=== PATIENT | male | born 1990 | race Caucasian/White ===

== ENCOUNTER 2018-11-01 17:40 | Emergency (ER) | payer BC, OTHER ==
[~2018-11-01] VITALS: Ht 177.8 cm; Wt 121.1 kg
[2018-11-01] MEDS ORDERED: IBUPROFEN 800 MG (MOTRIN) TAB PO STA (18:12)
--- NOTE | 2018-11-01 18:12 | ED General ---
General Chief Complaint: General Problems/Pain Stated Complaint: RT KNEE PAIN, BACK PAIN History of Present Illness Date Seen by Provider: Nov 01, 2018 Time Seen by Provider: 17:58 Timing/Duration: Other (3 weeks) Severity: Mild Modifying Factors: improves with Movement Associated Systoms: Cough, Fever/Chills This is a 28-year-old male who complains of about 3 weeks of cough and intermittent fevers. He has had some increase in his chronic back and knee pain during the last 3 weeks as well, today he felt like his right knee was clicking more frequently than usual although this is not an entirely new symptom. He has no chest pain or shortness of breath. He does smoke cigarettes although he has significantly decreased in the last few weeks. No weakness or numbness or tingling. Denies injection drug use. Denies incontinence or retention of urine or stool. Allergies and Home Medications Allergies Coded Allergies: buspirone (Unverified Adverse Reaction, Mild, TINGLING, 11/01/18) Home Medications No Active Prescriptions or Reported Meds Patient Home Medication List Home Medication List Reviewed: Yes Review of Systems Review of Systems Constitutional: see HPI EENTM: no symptoms reported Respiratory: see HPI Cardiovascular: no symptoms reported Gastrointestinal: no symptoms reported Genitourinary: no symptoms reported Musculoskeletal: see HPI Skin: no symptoms reported Psychiatric/Neurological: No Symptoms Reported Hematologic/Lymphatic: No Symptoms Reported Immunological/Allergic: no symptoms reported Past Iiqsafa-Wmhddw-Xjsjas Hx Patient Social History Alcohol Use: Occasionally Uses Recreational Drug Use: No Smoking Status: Current Everyday Smoker Type Used: Cigarettes Recent Foreign Travel: No Contact w/Someone Who Travel: No Recent Hopitalizations: No Physical Abuse: No Sexual Abuse: No Mistreated: No Fear: No Seasonal Allergies Seasonal Allergies: No Past Medical History Surgeries: Yes (BILAT HERNIA SURGERY AGE 1) Respiratory: No Cardiac: No Neurological: No Genitourinary: No Gastrointestinal: No Musculoskeletal: Yes (CHRONIC KNEE PAIN) Chronic Back Pain HEENT: No Cancer: No Psychosocial: Yes ADD/ADHD, Depression Blood Disorders: No Physical Exam Vital Signs Vital Signs - First Documented 11/01/18 17:45 Temp 101.2 Pulse 113 Resp 20 B/P (MAP) 137/85 (102) Pulse Ox 97 O2 Delivery Room Air Capillary Refill : Height, Weight, BMI Height: '" Weight: lbs. oz. kg; BMI Method: General Appearance: No Apparent Distress Eyes: Bilateral Eye PERRL, Bilateral Eye EOMI HEENT: Other (pharynx is mildly erythematous, no edema, no ulcers or exudates) Neck: Non Tender, Supple; No Lymphadenopathy (L), No Lymphadenopathy (R) Respiratory: No Respiratory Distress, Other (there is good air exchange bilaterally, mild inspiratory and expiratory wheeze on the right anteriorly) Cardiovascular: Regular Rate, Rhythm, No Edema, Normal Peripheral Pulses Gastrointestinal: Non Tender, Soft Back: Normal Inspection, No Vertebral Tenderness, Other (there is mild tenderness in the musculature of the left mid back without other palpatory abnormality) Extremity: Other (there is no effusion in either knee, no erythema or warmth. There is a normal range of motion, there is no pain with micro-movement) Neurologic/Psychiatric: Oriented x3, Normal Mood/Affect; No Abnormal Gait Skin: Warm/Dry Progress/Results/Core Measures Suspected Sepsis SIRS Temperature: Pulse: Respiratory Rate: Blood Pressure / Mean: Results/Orders My Orders Orders - ANH MAYES DO Chest Pa/Lat (2 View) (11/01/18 18:10) Ibuprofen Tablet (Motrin Tablet) (11/01/18 18:12) Vital Signs/I&O 11/01/18 17:45 Temp 101.2 Pulse 113 Resp 20 B/P (MAP) 137/85 (102) Pulse Ox 97 O2 Delivery Room Air Capillary Refill : Progress Note : Progress Note This is a 28-year-old male here with 3 weeks of cough and fevers. He does smoke cigarettes and has mild wheezing on the right side, we will obtain a chest x- ray to evaluate for evidence of pneumonia, patient has had pneumonia in the past but he says he was much sicker at that time. He does state that his main reason for coming is to get some documentation that he has actually been ill so that he can show his boss as he has been having to work outdoors while he is feeling sick recently. He refuses any blood testing. He does not need an x-ray of his knee on an emergent basis, clinically there is nothing that suggest septic arthritis, he is mostly complaining of clicking when I did recommend that he may benefit from orthopedic follow-up for possibly obtaining an MRI. Regarding his back pain there is nothing that suggests vertebral osteomyelitis or epidural abscess or transverse myelitis for example, no evidence of cellulitis or abscess on exam. He is clear that his pain complaints are chronic and seems to have been slightly worse in the last 3 weeks but these are not new for him. He is neurovascularly intact. He is nontoxic appearing despite having a fever and mild tachycardia. I think it is reasonable that we administer an antipyretic and we can reevaluate. Diagnostic Imaging Diagonstic Imaging: Xray Comments CLINICAL INDICATION: Patient with fever and cough x3 weeks. EXAM: Chest x-ray, PA and lateral views. COMPARISONS: None. FINDINGS: Lungs/pleura: There appears to be subtle reticulonodular appearance throughout both lungs. This may be related to atelectasis or mild lung infiltrates. There is no lung consolidation seen. There is no pneumothorax. There is no pleural effusion. Mediastinum: Unremarkable. Pulmonary vasculature: Unremarkable. Heart: Unremarkable. Bones/extrathoracic soft tissue: Unremarkable. IMPRESSION: There appears to be subtle reticular nodular appearance throughout both lungs, which may represent atelectasis or mild lung infiltrates. Followup chest x-ray in 2-4 weeks is suggested to evaluate for interval resolution of this finding. Departure Impression Primary Impression: Cough Additional Impressions: Abnormal chest xray Tobacco abuse Disposition: 01 HOME, SELF-CARE Condition: Stable Departure-Patient Inst. Referrals: NO,LOCAL PHYSICIAN (PCP) Primary Care Physician Patient Instructions: Cough in Adults Scripts Benzonatate (TESSALON PERLES) 100 Mg Capsule 200 MG PO BID PRN PRN for COUGH for 7 Days, #30 CAP Prov: ANH MAYES DO 11/01/18 Albuterol Sulfate (VENTOLIN HFA) 1 Puff Puff 2 PUFF INH Q4H PRN for WHEEZING for 30 Days, #1 INHALER 1 PUFF = 90 MCG Prov: ANH MAYES DO 11/01/18 Azithromycin (Azithromycin) 250 Mg Tablet 250 MG PO UD for 5 Days, #6 TAB TAKE 2 TABLETS ON DAY ONE THEN TAKE 1 TABLET DAILY FOR FOUR MORE DAYS Prov: ANH MAYES DO 11/01/18 Work/School Note: Work Release Form Date Seen in the Emergency Department: Nov 01, 2018 Return to Work: Nov 01, 2018 Restrictions: No Restrictions ANH MAYES DO Nov 01, 2018 18:12
--- NOTE | 2018-11-01 18:24 | Diagnostic Imaging Report ---
CLINICAL INDICATION: Patient with fever and cough x3 weeks. EXAM: Chest x-ray, PA and lateral views. COMPARISONS: None. FINDINGS: Lungs/pleura: There appears to be subtle reticulonodular appearance throughout both lungs. This may be related to atelectasis or mild lung infiltrates. There is no lung consolidation seen. There is no pneumothorax. There is no pleural effusion. Mediastinum: Unremarkable. Pulmonary vasculature: Unremarkable. Heart: Unremarkable. Bones/extrathoracic soft tissue: Unremarkable. IMPRESSION: There appears to be subtle reticular nodular appearance throughout both lungs, which may represent atelectasis or mild lung infiltrates. Followup chest x-ray in 2-4 weeks is suggested to evaluate for interval resolution of this finding. Dictated by: Dictated on workstation # [id number]
[2018-11-01] MEDS ORDERED: BENZ100C18 PO (18:50)
[2018-11-01] MEDS ORDERED: RT-ALBUINH INH (18:50)
[2018-11-01] MEDS ORDERED: AZIT250T12 PO (18:50)
[2018-11-01 18:56] VITALS: BP 131/80
== END 2018-11-01 18:56 | disposition home or self-care (01) ==
LOC: ER FS 17:43
DX: R05 Cough (principal); R91.8 Other nonspecific abnormal finding of lung field; F98.8 Other specified behavioral and emotional disorders with onset usually occurring in childhood and adolescence; F90.9 Attention-deficit hyperactivity disorder, unspecified type; F32.9 Major depressive disorder, single episode, unspecified; F17.210 Nicotine dependence, cigarettes, uncomplicated; Z88.8 Allergy status to other drugs, medicaments and biological substances; Z98.890 Other specified postprocedural states
CPT/HCPCS: 71046

== ENCOUNTER 2019-06-27 18:40 | Emergency (ER) | payer SELFPAY ==
[~2019-06-27] VITALS: Ht 177.8 cm; Wt 122.0 kg
[~2019-06-27 18:40] MED LIST: AZIT250T12 PO; BENZ100C18 PO; RT-ALBUINH INH
[2019-06-27] MEDS ORDERED: LORazepam INJ 2 MG/ML (ATIVAN) VIAL IVP ONE (19:00)
[2019-06-27] MEDS ORDERED: NS IV 1000 ML 1,000 ML IV SCH ×2 (19:00→20:00)
[2019-06-27 19:04] LABS: WHITE BLOOD COUNT 14.1 10^3/uL (4.3-11.0)
[2019-06-27 19:05] LABS: BASOPHILS # (AUTO) 0.1 10^3/uL (0.0-0.1); BASOPHILS % (AUTO) 1 % (0-10); EOSINOPHILS # (AUTO) 0.4 10^3/uL (0.0-0.3); EOSINOPHILS % (AUTO) 3 % (0-10); HEMATOCRIT 43 % (40-54); HEMOGLOBIN 15.2 G/DL (13.3-17.7); LYMPHOCYTES # (AUTO) 4.7 X 10^3 (1.0-4.0); LYMPHOCYTES % (AUTO) 33 % (12-44); MEAN CORPUSCULAR HEMOGLOBIN 31 PG (25-34); MEAN CORPUSCULAR HGB CONC 35 G/DL (32-36); MEAN CORPUSCULAR VOLUME 88 FL (80-99); MEAN PLATELET VOLUME 9.9 FL (7.4-10.4); MONOCYTES # (AUTO) 1.4 X 10^3 (0.0-1.0); MONOCYTES % (AUTO) 10 % (0-12); NEUTROPHILS # (AUTO) 7.5 X 10^3 (1.8-7.8); NEUTROPHILS % (AUTO) 53 % (42-75); PLATELET COUNT 353 10^3/uL (130-400); RED CELL DISTRIBUTION WIDTH 13.2 % (10.0-14.5)
--- NOTE | 2019-06-27 19:07 | ED Chest Pain ---
General Chief Complaint: Chest Pain Stated Complaint: CHEST PAIN, SOB, SHAKY Nursing Triage Note: Patient c/o of chest pain. States he was standing at the stove cooking dinner when he felt a pop on the left side of his chest. He states he started feeling shaky and his vision became blurred. Nursing Sepsis Screen: No Definite Risk Source: patient Exam Limitations: no limitations History of Present Illness Date Seen by Provider: Jun 27, 2019 Time Seen by Provider: 20:20 Initial Comments The patient is a very pleasant 28-year-old male presents for evaluation of sudden onset of left-sided chest pain while cooking dinner this evening. He states he felt a sudden jolt or pop in his chest and then felt very anxious and "shaky". He states that he normally does not drink soda but he drank a 32 ounce caffeinated beverage in the early afternoon today. He reports a history of anxiety but denies any history of palpitations or heart arrhythmias. He is alert and oriented 4, appears anxious, but is in no distress at this time. He denies any shortness of breath, pain with deep breathing, nausea or vomiting, back pain, abdominal pain, fevers or chills, or syncope. His heart rate upon arrival is fluctuating between 115 and 125. He denies any illicit drug use or any stimulants. Timing/Duration: 1 hour Severity/Quality: moderate Location: substernal Radiation: no radiation Activities at Onset: none Prior CP/Workup: no prior chest pain ASA po BLEACHER LARD: No NTG SL BLEACHER LARD: No Allergies and Home Medications Allergies Coded Allergies: buspirone (Unverified Adverse Reaction, Mild, TINGLING, 11/01/18) Home Medications Albuterol Sulfate 1 Puff Puff, 2 PUFF INH Q4H PRN for WHEEZING 1 PUFF = 90 MCG Prescribed by: ANH MAYES on 11/01/181849 Azithromycin 250 Mg Tablet, 250 MG PO UD TAKE 2 TABLETS ON DAY ONE THEN TAKE 1 TABLET DAILY FOR FOUR MORE DAYS Prescribed by: ANH MAYES on 11/01/181849 Benzonatate 100 Mg Capsule, 200 MG PO BID PRN PRN for COUGH Prescribed by: ANH MAYES on 11/01/181849 Patient Home Medication List Home Medication List Reviewed: Yes Review of Systems Review of Systems Constitutional: no symptoms reported EENTM: No Symptoms Reported Respiratory: No Symptoms Reported Cardiovascular: Chest Pain Gastrointestinal: No Symptoms Reported Genitourinary: No Symptoms Reported Musculoskeletal: no symptoms reported Skin: no symptoms reported Psychiatric/Neurological: No Symptoms Reported Endocrine: No Symptoms Reported Hematologic/Lymphatic: No Symptoms Reported All Other Systems Reviewed Negative Unless Noted: Yes Past Iiyofgn-Eyhohs-Amsvrl Hx Past Med/Social Hx: Reviewed Nursing Past Med/Soc Hx Patient Social History Type Used: Cigarettes Recent Foreign Travel: No Contact w/Someone Who Travel: No Recent Infectious Disease Expo: No Recent Hopitalizations: No Seasonal Allergies Seasonal Allergies: No Past Medical History Surgeries: Yes (BILAT HERNIA SURGERY AGE 1) Respiratory: No Cardiac: No Neurological: No Genitourinary: No Gastrointestinal: No Musculoskeletal: Yes (CHRONIC KNEE PAIN) Chronic Back Pain HEENT: No Cancer: No Psychosocial: Yes ADD/ADHD, Depression Blood Disorders: No Physical Exam Vital Signs Vital Signs - First Documented 06/27/19 18:40 Temp 37.4 Pulse 128 Resp 20 B/P (MAP) 164/106 (125) Pulse Ox 100 O2 Delivery Room Air Capillary Refill : Less Than 3 Seconds Height, Weight, BMI Height: 5'10.00" Weight: 267lbs. oz. 121.552162zb; 38.00 BMI Method:Stated General Appearance: No Apparent Distress, WD/WN HEENT: PERRL/EOMI, Pharynx Normal Neck: Full Range of Motion, Normal Inspection, Non Tender Respiratory: Chest Non Tender, Lungs Clear, Normal Breath Sounds, No Accessory Muscle Use Cardiovascular: No Edema, No Gallop, No JVD, Normal Peripheral Pulses, Tachycardia Gastrointestinal: Normal Bowel Sounds, Non Tender, Soft Neurologic/Psychiatric: Alert, Oriented x3, No Motor/Sensory Deficits, neurology tech II- XII Norm as Tested, Other (appears anxious) Skin: Normal Color, Warm/Dry Progress/Results/Core Measures Results/Orders Lab Results Laboratory Tests Test 06/27/19 18:50 Range/Units White Blood Count 14.1 H 4.3-11.0 10^3/uL Red Blood Count 4.91 4.35-5.85 10^6/uL Hemoglobin 15.2 13.3-17.7 G/DL Hematocrit 43 40-54 % Mean Corpuscular Volume 88 80-99 FL Mean Corpuscular Hemoglobin 31 25-34 PG Mean Corpuscular Hemoglobin Concent 35 32-36 G/DL Red Cell Distribution Width 13.2 10.0-14.5 % Platelet Count 353 130-400 10^3/uL Mean Platelet Volume 9.9 7.4-10.4 FL Neutrophils (%) (Auto) 53 42-75 % Lymphocytes (%) (Auto) 33 12-44 % Monocytes (%) (Auto) 10 0-12 % Eosinophils (%) (Auto) 3 0-10 % Basophils (%) (Auto) 1 0-10 % Neutrophils # (Auto) 7.5 1.8-7.8 X 10^3 Lymphocytes # (Auto) 4.7 H 1.0-4.0 X 10^3 Monocytes # (Auto) 1.4 H 0.0-1.0 X 10^3 Eosinophils # (Auto) 0.4 H 0.0-0.3 10^3/uL Basophils # (Auto) 0.1 0.0-0.1 10^3/uL Neutrophils % (Manual) 48 % Lymphocytes % (Manual) 27 % Monocytes % (Manual) 10 % Eosinophils % (Manual) 2 % Basophils % (Manual) 1 % Metamyelocytes % % Myelocytes % 1 % Band Neutrophils 2 % Atypical Lymphocytes 9 % Blood Morphology Comment NORMAL D-Dimer 0.35 0.00-0.49 UG/ML Sodium Level 142 135-145 MMOL/L Potassium Level 3.5 L 3.6-5.0 MMOL/L Chloride Level 102 98-107 MMOL/L Carbon Dioxide Level 25 21-32 MMOL/L Anion Gap 15 H 5-14 MMOL/L Blood Urea Nitrogen 12 7-18 MG/DL Creatinine 0.91 0.60-1.30 MG/DL Estimat Glomerular Filtration Rate > 60 BUN/Creatinine Ratio 13 Glucose Level 96 70-105 MG/DL Calcium Level 10.1 8.5-10.1 MG/DL Corrected Calcium 8.5-10.1 MG/DL Magnesium Level 1.9 1.6-2.4 MG/DL Total Bilirubin 0.7 0.1-1.0 MG/DL Aspartate Amino Transf (AST/SGOT) 21 5-34 U/L Alanine Aminotransferase (ALT/SGPT) 17 0-55 U/L Alkaline Phosphatase 74 40-136 U/L Troponin I < 0.30 <0.30 NG/ML Total Protein 7.9 6.4-8.2 GM/DL Albumin 4.8 H 3.2-4.5 GM/DL My Orders Orders - ERASTO WHITLOCK DO Ekg Tracing (06/27/19 18:44) Continuous Ekg Monitoring (06/27/19 18:44) Cbc With Automated Diff (06/27/19 18:54) Comprehensive Metabolic Panel (06/27/19 18:54) Ed Iv/Invasive Line Start (06/27/19 18:54) Chest 1 View Ap/Pa Only (06/27/19 18:54) Magnesium (06/27/19 18:54) Ns Iv 1000 Ml (Sodium Chloride 0.9%) (06/27/19 19:00) Fibrin Degradation Products (06/27/19 18:54) Troponin I Fs (06/27/19 18:54) Lorazepam Injection (Ativan Injection) (06/27/19 19:00) Manual Differential (06/27/19 18:50) Potassium Chloride (Tablet) (K Dur Table (06/27/19 20:00) Ns Iv 1000 Ml (Sodium Chloride 0.9%) (06/27/19 20:00) Medications Given in ED Current Medications Medications Dose Ordered Sig/Shubham Route Start Time Stop Time Status Last Admin Dose Admin Lorazepam 1 mg ONCE ONCE IVP 06/27/19 19:00 06/27/19 19:01 DC 06/27/19 19:07 1 MG Potassium Chloride 40 meq ONCE ONCE PO 06/27/19 20:00 06/27/19 20:01 DC 06/27/19 20:04 40 MEQ Vital Signs/I&O 06/27/19 06/27/19 18:40 18:40 Temp 37.4 Pulse 128 Resp 20 B/P (MAP) 164/106 (125) Pulse Ox 100 O2 Delivery Room Air Room Air Blood Pressure Mean: 125 Progress Progress Note : Progress Note @2032 - Patient updated on lab and imaging results. He states he is feeling much better and has no complaints. His heart rate is now below 100. Advised the patient to follow up with his PCP in the next 2-3 days and to return to the emergency Department immediately for new or worsening symptoms. He expresses verbal understanding and agreement with the plan and is stable for discharge. Workup today fails to reveal any emergent pathology. EKG : Comment @1841 - Sinus tachycardia, rate 1:15, normal axis, no acute ischemic findings noted, right bundle-branch block is present, S1Q3T3 strain pattern is noted, no STEMI, reviewed and interpreted by myself Departure Impression Primary Impression: Anxiety Additional Impressions: Palpitations Caffeine use Disposition: HOME, SELF-CARE Condition: Stable Departure-Patient Inst. Referrals: NO,LOCAL PHYSICIAN (PCP) Primary Care Physician Patient Instructions: Palpitations (DC) Add. Discharge Instructions: Follow-up with your doctor in the next 2-3 days. Return to the emergency department for new or worsening symptoms. As discussed with your caffeine use as well as any other stimulants. ERASTO WHITLOCK DO Jun 27, 2019 19:06
--- NOTE | 2019-06-27 19:09 | Diagnostic Imaging Report ---
Clinical indication: Patient with left-sided chest pain. Exam: Portable chest x-ray upright view. Comparisons: Chest x-ray dated 11/01/2018. Findings: Lungs/pleura: Lungs are clear. There is no pneumothorax. There is no pleural effusion. Mediastinum: Unremarkable. Pulmonary vasculature: Unremarkable. Heart: Unremarkable. Bones/extrathoracic soft tissue: Unremarkable. Impression: There is no radiographic evidence of acute cardiopulmonary process. Dictated by: Dictated on workstation # [id number]
[2019-06-27 19:20] LABS: BAND NEUTROPHILS 2 %; BASOPHILS % (MANUAL) 1 %; EOSINOPHILS % (MANUAL) 2 %; LYMPHOCYTES % (MANUAL) 27 %; MONOCYTES % (MANUAL) 10 %; NEUTROPHILS % (MANUAL) 48 %
[2019-06-27 19:21] LABS: ATYPICAL LYMPHOCYTES 9 %; MYELOCYTES % 1 %; RBC MORPH NORMAL
[2019-06-27 19:23] LABS: CARBON DIOXIDE 25 MMOL/L (21-32); CHLORIDE 102 MMOL/L (98-107); POTASSIUM 3.5 MMOL/L (3.6-5.0); SODIUM 142 MMOL/L (135-145)
[2019-06-27 19:24] LABS: ALANINE AMINOTRANSFERASE 17 U/L (0-55); ALBUMIN 4.8 GM/DL (3.2-4.5); ALKALINE PHOSPHATASE 74 U/L (40-136); BILIRUBIN,TOTAL 0.7 MG/DL (0.1-1.0); BUN/CREATININE RATIO 13; CALCIUM 10.1 MG/DL (8.5-10.1); CREATININE SERUM 0.91 MG/DL (0.60-1.30); GFR ESTIMATED > 60; GLUCOSE 96 MG/DL (70-105); MAGNESIUM 1.9 MG/DL (1.6-2.4); TOTAL PROTEIN 7.9 GM/DL (6.4-8.2)
[2019-06-27] MEDS ORDERED: KCL 20 MEQ TAB (K-DUR) PO ONE (20:00)
[2019-06-27 21:00] VITALS: BP 159/106
== END 2019-06-27 21:07 | disposition home or self-care (01) ==
LOC: EDUNIT# 18:40 → ER FS 18:41
DX: F41.9 Anxiety disorder, unspecified (principal); F15.90 Other stimulant use, unspecified, uncomplicated; F90.9 Attention-deficit hyperactivity disorder, unspecified type; F32.9 Major depressive disorder, single episode, unspecified; Z88.8 Allergy status to other drugs, medicaments and biological substances
CPT/HCPCS: 36415; 71045; 80053; 83735; 84484; 85007; 85027; 85379; 93005

== ENCOUNTER 2020-09-28 23:29 | Emergency (ER) | payer SELFPAY ==
[~2020-09-28] VITALS: Ht 177.8 cm; Wt 128.4 kg
[2020-09-29 00:14] LABS: CLARITY,URINE CLEAR; COLOR,URINE YELLOW; GLUCOSE, URINE (UA) NEGATIVE (NEGATIVE); PH,URINE 5.5 (5-9); PROTEIN,URINE NEGATIVE (NEGATIVE)
[2020-09-29 00:15] LABS: BACTERIA,URINE NEGATIVE /HPF; BILIRUBIN,URINE NEGATIVE (NEGATIVE); KETONES,URINE NEGATIVE (NEGATIVE); LEUKOCYTE ESTERASE ,URINE NEGATIVE (NEGATIVE); NITRITE,URINE NEGATIVE (NEGATIVE)
[2020-09-29] MEDS ORDERED: KETOROLAC 30 MG/ML VIAL IVP STA (00:16)
[2020-09-29] MEDS ORDERED: LACTATED RINGERS 1,000 ML IV STA ×2 (00:16→00:44)
--- NOTE | 2020-09-29 00:16 | ED GI ---
General Chief Complaint: Abdominal/GI Problems Stated Complaint: ABDOMINAL PAIN History of Present Illness Date Seen by Provider: Sep 29, 2020 Time Seen by Provider: 12:10 Initial Comments 29-year-old male presents with abdominal pain that started around 10 PM. He has some abdominal cramping and some diarrhea some nausea and vomiting. He reports he is having some chills. No cough, shortness of breath chest pain. No known sick contacts. Pain is can the mid abdomen is described as crampy. Patient fe els that he may be dehydrated from having "2 straight hours of diarrhea" Allergies and Home Medications Allergies Coded Allergies: buspirone (Unverified Adverse Reaction, Mild, TINGLING, 11/01/18) Home Medications Albuterol Sulfate 1 Puff Puff, 2 PUFF INH Q4H PRN for WHEEZING 1 PUFF = 90 MCG Prescribed by: ANH MAYES on 11/01/181849 Azithromycin 250 Mg Tablet, 250 MG PO UD TAKE 2 TABLETS ON DAY ONE THEN TAKE 1 TABLET DAILY FOR FOUR MORE DAYS Prescribed by: ANH MAYES on 11/01/181849 Benzonatate 100 Mg Capsule, 200 MG PO BID PRN PRN for COUGH Prescribed by: ANH MAYES on 11/01/181849 Patient Home Medication List Home Medication List Reviewed: Yes Review of Systems Review of Systems Constitutional: chills; No fever Respiratory: Denies Cough, Denies Shortness of Air Cardiovascular: Denies Chest Pain Gastrointestinal: Diarrhea, Nausea, Vomiting Genitourinary: No Symptoms Reported Musculoskeletal: no symptoms reported Skin: no symptoms reported Psychiatric/Neurological: No Symptoms Reported Endocrine: No Symptoms Reported Hematologic/Lymphatic: No Symptoms Reported Past Rciaccv-Hfgesl-Wgcxod Hx Past Med/Social Hx: Reviewed Nursing Past Med/Soc Hx Patient Social History Type Used: Cigarettes 2nd Hand Smoke Exposure: No Recent Hopitalizations: No Seasonal Allergies Seasonal Allergies: No Past Medical History Surgeries: Yes (BILAT HERNIA SURGERY AGE 1) Respiratory: No Cardiac: Yes High Cholesterol Neurological: No Genitourinary: No Gastrointestinal: No Musculoskeletal: Yes (CHRONIC KNEE PAIN) Chronic Back Pain Endocrine: No HEENT: No Cancer: No Psychosocial: Yes ADD/ADHD, Depression Integumentary: No Blood Disorders: No Physical Exam Vital Signs Vital Signs - First Documented 09/29/20 00:13 Temp 36.8 Pulse 98 Resp 18 B/P (MAP) 140/116 (124) Pulse Ox 98 O2 Delivery Room Air Capillary Refill : Height/Weight/BMI Height: 5'10.00" Weight: 267lbs. oz. 121.077572ba; 38.00 BMI Method:Stated General Appearance: mild distress Neck: full range of motion, supple Respiratory: lungs clear, normal breath sounds Cardiovascular: normal peripheral pulses, regular rate, rhythm Gastrointestinal: soft; No guarding, No rebound; tenderness (Mild diffuse) Extremities: normal range of motion, normal capillary refill Back: normal inspection Neurologic/Psychiatric: alert, normal mood/affect, oriented x 3 Skin: normal color, warm/dry Progress/Results/Core Measures Results/Orders Lab Results Laboratory Tests Test 09/29/20 00:02 09/29/20 00:15 Range/Units Urine Color YELLOW Urine Clarity CLEAR Urine pH 5.5 5-9 Urine Specific Morrison >=1.030 1.016-1.022 Urine Protein NEGATIVE NEGATIVE Urine Glucose (UA) NEGATIVE NEGATIVE Urine Ketones NEGATIVE NEGATIVE Urine Nitrite NEGATIVE NEGATIVE Urine Bilirubin NEGATIVE NEGATIVE Urine Urobilinogen 0.2 < = 1.0 MG/DL Urine Leukocyte Esterase NEGATIVE NEGATIVE Urine RBC (Auto) TRACE-I NEGATIVE Urine RBC NONE /HPF Urine WBC NONE /HPF Urine Squamous Epithelial Cells NONE /HPF Urine Crystals NONE /LPF Urine Bacteria NEGATIVE /HPF Urine Casts PRESENT /LPF Urine Granular Casts 2-5 H /LPF Urine Mucus LARGE H /LPF Urine Culture Indicated NO White Blood Count 14.7 H 4.3-11.0 10^3/uL Red Blood Count 5.38 4.35-5.85 10^6/uL Hemoglobin 16.6 13.3-17.7 G/DL Hematocrit 47 40-54 % Mean Corpuscular Volume 88 80-99 FL Mean Corpuscular Hemoglobin 31 25-34 PG Mean Corpuscular Hemoglobin Concent 35 32-36 G/DL Red Cell Distribution Width 12.6 10.0-14.5 % Platelet Count 312 130-400 10^3/uL Mean Platelet Volume 9.5 7.4-10.4 FL Immature Granulocyte % (Auto) 1 % Neutrophils (%) (Auto) 79 H 42-75 % Lymphocytes (%) (Auto) 10 L 12-44 % Monocytes (%) (Auto) 9 0-12 % Eosinophils (%) (Auto) 1 0-10 % Basophils (%) (Auto) 0 0-10 % Neutrophils # (Auto) 11.7 H 1.8-7.8 X 10^3 Lymphocytes # (Auto) 1.5 1.0-4.0 X 10^3 Monocytes # (Auto) 1.3 H 0.0-1.0 X 10^3 Eosinophils # (Auto) 0.1 0.0-0.3 10^3/uL Basophils # (Auto) 0.1 0.0-0.1 10^3/uL Immature Granulocyte # (Auto) 0.1 0.0-0.1 10^3/uL Neutrophils % (Manual) 75 % Lymphocytes % (Manual) 16 % Monocytes % (Manual) 6 % Eosinophils % (Manual) 3 % Toxic Granulation 2+ Sodium Level 141 135-145 MMOL/L Potassium Level 4.1 3.6-5.0 MMOL/L Chloride Level 104 98-107 MMOL/L Carbon Dioxide Level 25 21-32 MMOL/L Anion Gap 12 5-14 MMOL/L Blood Urea Nitrogen 19 H 7-18 MG/DL Creatinine 1.02 0.60-1.30 MG/DL Estimat Glomerular Filtration Rate > 60 BUN/Creatinine Ratio 19 Glucose Level 111 H 70-105 MG/DL Calcium Level 9.4 8.5-10.1 MG/DL Corrected Calcium 8.5-10.1 MG/DL Total Bilirubin 0.8 0.1-1.0 MG/DL Aspartate Amino Transf (AST/SGOT) 23 5-34 U/L Alanine Aminotransferase (ALT/SGPT) 34 0-55 U/L Alkaline Phosphatase 100 40-136 U/L Total Protein 7.6 6.4-8.2 GM/DL Albumin 4.8 H 3.2-4.5 GM/DL Lipase 22 8-78 U/L My Orders Orders - BERRIOS,JASON L DO Cbc With Automated Diff (09/29/20 00:02) Comprehensive Metabolic Panel (09/29/20 00:02) Lipase (09/29/20 00:02) Ua Culture If Indicated (09/29/20 00:02) Ondansetron Injection (Zofran Injectio (09/29/20 00:30) Lactated Ringers (Lr 1000 Ml Iv Solution (09/29/20 00:16) Acute Abd Series (09/29/20 00:16) Ketorolac Injection (Toradol Injection) (09/29/20 00:16) Manual Differential (09/29/20 00:15) Ct Abdomen/Pelvis W (09/29/20 00:41) Iohexol Injection (Omnipaque 350 Mg/Ml 1 (09/29/20 00:45) Di Iv Start (Assessment) .IV start (09/29/20 00:43) Received Contrast (Hold Metformin- Contr (09/29/20 00:45) Ns (Ivpb) (Sodium Chloride 0.9% Ivpb Bag (09/29/20 00:45) Lactated Ringers (Lr 1000 Ml Iv Solution (09/29/20 00:44) Famotidine Injection (Pepcid Injection) (09/29/20 00:44) Medications Given in ED Current Medications Medications Dose Ordered Sig/Shubham Route Start Time Stop Time Status Last Admin Dose Admin Iohexol 100 ml ONCE ONCE IV 09/29/20 00:45 09/29/20 00:46 DC 09/29/20 00:53 100 ML Ondansetron HCl 4 mg ONCE ONCE IVP 09/29/20 00:30 09/29/20 00:31 DC 09/29/20 00:23 4 MG Sodium Chloride 100 ml ONCE ONCE IV 09/29/20 00:45 09/29/20 00:46 DC 09/29/20 00:53 100 ML Vital Signs/I&O 09/29/20 00:13 Temp 36.8 Pulse 98 Resp 18 B/P (MAP) 140/116 (124) Pulse Ox 98 O2 Delivery Room Air Diagnostic Imaging Diagonstic Imaging: Xray Plain Films/CT/US/NM/MRI: abdomen Comments No acute findings Reviewed: Reviewed by Me Diagonstic Imaging: CT Plain Films/CT/US/NM/MRI: abdomen Comments Mild colitis no other acute finding Reviewed: Reviewed [facility] Study, Reviewed by Me Departure Impression Primary Impression: Gastroenteritis and colitis, viral Disposition: 01 HOME, SELF-CARE Condition: Stable Departure-Patient Inst. Referrals: NO,LOCAL PHYSICIAN (PCP/Family) Primary Care Physician Add. Discharge Instructions: Clear liquid diet then advance diet as tolerated Drink plenty of fluids All discharge instructions reviewed with patient and/or family. Voiced und erstanding. Scripts Ondansetron (Ondansetron Odt) 4 Mg Tab.rapdis 4 MG PO Q6H PRN for NAUSEA/VOMITING, #20 TAB 0 Refills Prov: JASON BERRIOS DO 09/29/20 JASON BERRIOS DO Sep 29, 2020 00:16
[2020-09-29 00:20] LABS: BASOPHILS # (AUTO) 0.1 10^3/uL (0.0-0.1); BASOPHILS % (AUTO) 0 % (0-10); EOSINOPHILS # (AUTO) 0.1 10^3/uL (0.0-0.3); EOSINOPHILS % (AUTO) 1 % (0-10); HEMATOCRIT 47 % (40-54); HEMOGLOBIN 16.6 G/DL (13.3-17.7); LYMPHOCYTES # (AUTO) 1.5 X 10^3 (1.0-4.0); LYMPHOCYTES % (AUTO) 10 % (12-44); MEAN CORPUSCULAR HEMOGLOBIN 31 PG (25-34); MEAN CORPUSCULAR HGB CONC 35 G/DL (32-36); MEAN CORPUSCULAR VOLUME 88 FL (80-99); MEAN PLATELET VOLUME 9.5 FL (7.4-10.4); MONOCYTES # (AUTO) 1.3 X 10^3 (0.0-1.0); MONOCYTES % (AUTO) 9 % (0-12); NEUTROPHILS # (AUTO) 11.7 X 10^3 (1.8-7.8); NEUTROPHILS % (AUTO) 79 % (42-75); PLATELET COUNT 312 10^3/uL (130-400); WHITE BLOOD COUNT 14.7 10^3/uL (4.3-11.0)
[2020-09-29] MEDS ORDERED: ONDANSETRON 4 MG/2 ML (SDV) Z0FRAN IVP ONE (00:30)
[2020-09-29 00:38] LABS: ALANINE AMINOTRANSFERASE 34 U/L (0-55); ALBUMIN 4.8 GM/DL (3.2-4.5); ALKALINE PHOSPHATASE 100 U/L (40-136); BILIRUBIN,TOTAL 0.8 MG/DL (0.1-1.0); BUN/CREATININE RATIO 19; CALCIUM 9.4 MG/DL (8.5-10.1); CARBON DIOXIDE 25 MMOL/L (21-32); CHLORIDE 104 MMOL/L (98-107); CREATININE SERUM 1.02 MG/DL (0.60-1.30); GFR ESTIMATED > 60; GLUCOSE 111 MG/DL (70-105); LIPASE 22 U/L (8-78); POTASSIUM 4.1 MMOL/L (3.6-5.0); SODIUM 141 MMOL/L (135-145); TOTAL PROTEIN 7.6 GM/DL (6.4-8.2)
[2020-09-29 00:39] LABS: EOSINOPHILS % (MANUAL) 3 %; LYMPHOCYTES % (MANUAL) 16 %; MONOCYTES % (MANUAL) 6 %; NEUTROPHILS % (MANUAL) 75 %; TOXIC GRANULATION/VACUOLAZATIO 2+
[2020-09-29] MEDS ORDERED: FAMOTIDINE 20MG/2ML IV (PEPCID) IV STA (00:44)
[2020-09-29] MEDS ORDERED: HOLD METFORMIN - RECEIVED CONTRAST 20 ML VIAL IV SCH (00:45)
[2020-09-29] MEDS ORDERED: IOHEXOL 350 MG/ML 100 ML (OMNIPAQUE 350) VIAL IV ONE (00:45)
[2020-09-29] MEDS ORDERED: NS 100 ML (IVPB) BAG IV ONE (00:45)
[2020-09-29] MEDS ORDERED: ONDA4TAB11 PO (01:28)
[2020-09-29 01:35] VITALS: BP 119/62
--- NOTE | 2020-09-29 07:24 | Diagnostic Imaging Report ---
INDICATION: Abdominal pain. COMPARISON: CT abdomen and pelvis performed 30 minutes subsequently. FINDINGS: Nonobstructive bowel gas pattern. No free intraperitoneal air. Lungs are clear. No pleural effusion or pneumothorax. Normal cardiomediastinal silhouette. Normal regional skeleton. IMPRESSION: Negative abdominal series. Dictated by: Dictated on workstation # [id number]
--- NOTE | 2020-09-29 07:27 | Diagnostic Imaging Report ---
PROCEDURE: CT abdomen and pelvis with contrast. TECHNIQUE: Multiple contiguous axial images were obtained through the abdomen and pelvis after administration of intravenous contrast. Auto Exposure Controls were utilized during the CT exam to meet ALARA standards for radiation dose reduction. All CT scans use one or more of the following dose optimizing techniques: automated exposure control, MA and/or KvP adjustment based on patient size and exam type or iterative reconstruction. DATE: September 29, 2020. COMPARISON: KUB September 29, 2020. INDICATION: 29-year-old male, abdominal pain. Elevated white blood cell count. FINDINGS: The visualized portions of the lung bases are clear. The heart is not enlarged. There is no identified pericardial effusion. The liver is unremarkable in size and contour. There is question of diffuse fatty infiltration of the liver. The main, right, and left portal veins are patent. There is no identified liver lesion. The gallbladder is unremarkable. There is no biliary ductal dilation. The main pancreatic duct is not grossly distended. Unremarkable appearance of the pancreas. The spleen is normal in size. The adrenal glands are unremarkable. Unremarkable appearance of the renal parenchyma. The urinary collecting systems are not distended. There is no identified renal or ureteral stone. Urinary bladder is underdistended and grossly unremarkable in appearance. There is fatty wall thickening of the transverse colon and right colon. The appendix is unremarkable and well seen. There is no free intraperitoneal air. There is no drainable fluid collection. There is no free pelvic fluid. There is no identified abnormally enlarged lymph node in the abdomen or pelvis meeting CT size criteria for adenopathy. There is no identified acute bony abnormality. There is severe disc height loss at L5-S1. There is a disc protrusion at L4-L5. IMPRESSION: CT ABDOMEN AND PELVIS. 1. No identified acute abnormality in the abdomen or pelvis. 2. Fatty wall thickening of the transverse and right colon consistent with chronic colitis. No evidence of an active colitis. 3. Question of diffuse fatty infiltration of the liver. Dictated by: Dictated on workstation # [id number]
== END 2020-09-29 01:35 | disposition home or self-care (01) ==
LOC: EDUNIT# 23:29 → ER FS 23:54
DX: A08.4 Viral intestinal infection, unspecified (principal); Z88.8 Allergy status to other drugs, medicaments and biological substances
CPT/HCPCS: 36415; 74022; 74177; 80053; 81000; 83690; 85007; 85027

== ENCOUNTER 2021-05-12 16:37 | Emergency (ER) | payer SELFPAY ==
[~2021-05-12 16:37] MED LIST changes: +ONDA4TAB11 PO
[2021-05-12 16:41] VITALS: BP 158/97
--- OUTSIDE RECORDS SUMMARY | 2021-05-12 16:41 | XMS REPORT | Clinical Summary ---
Author Author [facility] Organization [facility] Address Unknown Phone Unavailable Care Team Providers Care Domestic Cleaner Name Role Phone PCP Unavailable Allergies Not on File Medications Not on file Active Problems Not on file Social History Date Tobacco Use Types Packs/Day Years Used Never Assessed Sex Assigned at Date Recorded Not on file Last Filed Vital Signs Not on file Plan of Treatment Health Maintenance Due Date Last Done Comments Td/Tdap# 1988 COVID-19 Vaccine (1) 2000 Influenza Vaccine (#1) 2021 Pneumococcal Vaccine: Aged Out No longer eligib cecil based on patient's age to Pediatrics (0 to 5 Years) complete this topic and At-Risk Patients (6 to 64 Years) Results Not on filefrom Last 3 Months Advance Directives For more information, please contact: [phone] 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
--- OUTSIDE RECORDS SUMMARY | 2021-05-12 16:41 | XMS REPORT | Clinical Summary ---
Author Author [facility] Organization [facility] Address Unknown Phone Unavailable Care Team Providers Care Solderer Name Role Phone Jeannie Fernandes MD PCP Source Comments Some departments are not documenting in the electronic medical record. If you d o not see the information that you expected, contact Release of Information in [facility] [employer] Information Management department at [phone] for further assistan ce in locating additional records.[facility] Allergies Comments Active Allergy Reactions Severity Noted Date tingling sensation Bupropion SEE COMMENTS Low 08/24/2018 Medications End Date Status Medication Sig Dispensed Refills Start Date Active dextroamphetamine/ampheta Take 20 mg by 0 mine (ADDERALL PO) mouth three times daily. Active sildenafil(+) (VIAGRA) Take one-half 10 tablet 11 100 mg tabletIndications: tablet to one 8 erectile dysfunction tablet by mouth as Needed for Erectile dysfunction. Take 1-4 hrs prior to sexual activity. Take on empty stomach. Active Problems Problem Noted Date Chronic fatigue 08/26/2018 Last Assessment & Plan: Formatting of this note might be differ ent from the original. Discussed possible multifactorial etiol ogies for chronic fatigue, decreased libido, & ED, which may include, but no t limited to low testosterone/ hypogonadism. Discussed testosterone deficiency sympt oms are non-specific and may overlap w/ other medical conditions. Discussed indications for additional la b evaluation. Discussed conflicting evidence regardin g low testosterone associated w/ cardiovascular disease. Discussed infertility, decreased sperm production w/ exogenous testosterone therapy. Discussed this may be tempora ry and sperm production may improve w/ testosterone therapy cessation, but sometimes decreased sperm production is permanent. Discussed testosterone therapy options, including injection, patch, gel. After careful consideration, he wishes continue work-up & evaluation. Recommend repeat morning testosterone l ab today while he is here at [facility]. -- will contact pt w/ result. -- if Testosterone < 300 ng/dL, will re commend additional lab evaluation. Chronic malaise 08/26/2018 Last Assessment & Plan: Formatting of this note might be differ ent from the original. See chronic fatigue A&P note. ED (erectile dysfunction) of organic origin 08/26/20 18 Last Assessment & Plan: Formatting of this note might be differ ent from the original. Discussed possible etiologies of ED, in cluding but not limited to vascular, neurological, hormonal, situational, & psychological. Discussed further work-up & evaluation. Discussed ED tx options: -- PDE-5 inhibitors -- MUSE -- Vacuum Erection Device (CELINA) -- Penile constriction band -- Penile injections (ICI) -- Penile prosthesis After careful consideration, he wishes to try generic Sildenafil. Decreased libido Last Assessment & Plan: Formatting of this note might be differ ent from the original. See chronic fatigue A&P note. ADD (attention deficit disorder) Surgical History Surgery Date Site/Laterality Comments HERNIA REPAIR 09/06/1990 - 09/05/1991 Medical History Medical History Date Comments Anxiety disorder Asthma Depression ADD (attention deficit disorder) ED (erectile dysfunction) of organic origin Family History Medical History Relation Name Comments Heart Disease Father Cancer Maternal Grandfather Heart Disease Maternal Grandmother Stroke Maternal Grandmother Relation Name Status Comments Father Maternal Grandfather Maternal Grandmother Social History Date Tobacco Use Types Packs/Day Years Used Current Every Day Smoker Cigarettes 1 Smokeless Tobacco: Former Chew User Comments: half of a pack per day Comments Alcohol Use Standard Drinks/Week Yes 12 (1 standard drink = 0.6 oz pure alcohol) Sex Assigned at Date Recorded Not on file Last Filed Vital Signs Reading Time Taken Comments Vital Sign 135/89 08/24/2018 8:[address] Blood Pressure 94 08/24/2018 8:[address] Pulse - - Temperature - - Respiratory Rate - - Oxygen Saturation - - Inhaled Oxygen Concentration 116.9 kg (257 lb 12.8 oz) 08/24/2018 8:[address] Weight 177.8 cm (5' 10") 08/24/2018 8:[address] Height 36.99 08/24/2018 8:[address] Body Mass Index Plan of Treatment Health Maintenance Due Date Last Done Comments HIV SCREENING 2003 DTAP/TDAP VACCINES (1 - 2006 Tdap) HEPATITIS C SCREENING 2006 PHYSICAL (COMPREHENSIVE) 2006 EXAM INFLUENZA VACCINE 06/06/2021 Results Not on filefrom Last 3 Months 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
[2021-05-12] MEDS ORDERED: NITROGLYCERIN 0.4 MG SL TABS BTL 25'S SL PRN (17:00)
[2021-05-12] MEDS ORDERED: ASPIRIN 81 MG CHEW (CHILDREN'S ASA) PO ONE (17:00)
--- NOTE | 2021-05-12 17:12 | Diagnostic Imaging Report ---
EXAMINATION: Chest 1 view HISTORY: Chest pain. COMPARISON: 06/27/2019. FINDINGS: The lung volumes are normal. No focal consolidation is seen. No large pleural effusion or pneumothorax is seen. The cardiomediastinal silhouette is normal in size and contour. No acute osseous abnormality is seen. IMPRESSION: 1. No acute pleuroparenchymal process. Dictated by: Dictated on workstation # [id number]
[2021-05-12] MEDS ORDERED: DOXYCYCLINE 100 MG (VIBRAMYCIN) TABLET PO ONE (17:15)
--- NOTE | 2021-05-12 17:18 | ED Chest Pain ---
General Chief Complaint: Chest Pain Stated Complaint: LT SIDE FACIAL SWELLING,LT SIDE CP Nursing Triage Note: Patient reports left sided facial swelling from a patient suspected spider bite. He states the swelling began on Wednesday and has continued to worsen. He also reports left sided chest pressure described as "tension" that started on Wednesday afternoon. Source: patient Exam Limitations: no limitations History of Present Illness Date Seen by Provider: May 12, 2021 Time Seen by Provider: 16:50 Initial Comments This 30-year-old gentleman presents to the emergency room with 2 complaints. His primary concern is swelling and pain of the left face after having a furuncle that popped and drained just above his left lip. The lesion appeared two days ago and today the swelling, pain, and induration worsened. He denies fever. He then developed chest pain in his left chest yesterday. Its described as an intermittent squeezing type of pain. He reports a strong family history of heart disease. His father reportedly developed heart disease in his 30s. He denies any shortness of breath or diaphoresis. Pain in the chest is present at this time and is mild. 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 He has not noted chest pain worsening with exertion. He has not identified any musculoskeletal strain or injury that would result in this type of pain. Chest is nontender. His PCP is Corine Jacobo. Allergies and Home Medications Allergies Coded Allergies: buspirone (Unverified Adverse Reaction, Mild, TINGLING, 11/01/18) Patient Home Medication List Home Medication List Reviewed: Yes Albuterol Sulfate (Ventolin Hfa) 1 Puff Puff, 2 PUFF INH Q4H PRN for WHEEZING Prescribed by: ANH MAYES on 11/01/181849 Azithromycin (Azithromycin) 250 Mg Tablet, 250 MG PO UD Prescribed by: ANH MAYES on 11/01/181849 Benzonatate (Tessalon Perles) 100 Mg Capsule, 200 MG PO BID PRN PRN for COUGH Prescribed by: ANH MAYES on 11/01/181849 Doxycycline Hyclate (Doxycycline Hyclate) 100 Mg Tablet, 100 MG PO BID Prescribed by: NEAL BARNETT on 05/12/211725 Ondansetron (Ondansetron Odt) 4 Mg Tab.rapdis, 4 MG PO Q6H PRN for NAUSEA/VOMITING Prescribed by: JASON BERRIOS on 09/29/20 0128 Review of Systems Review of Systems Constitutional: no symptoms reported; No fever EENTM: See HPI Respiratory: No Symptoms Reported Cardiovascular: See HPI Gastrointestinal: No Symptoms Reported Genitourinary: No Symptoms Reported Musculoskeletal: no symptoms reported Skin: no symptoms reported Psychiatric/Neurological: No Symptoms Reported Endocrine: No Symptoms Reported Hematologic/Lymphatic: No Symptoms Reported Past Eeadcwm-Kwroox-Cqiduw Hx Patient Social History Tobacco Use?: Yes Tobacco type used: Cigarettes Smoking Status: Current Everyday Smoker Substance use?: No Alcohol Use?: Yes Alcohol Frequency: Once in a while Pt feels they are or have been: No Seasonal Allergies Seasonal Allergies: No Past Medical History Surgeries: Yes (BILAT HERNIA SURGERY AGE 1) Respiratory: No Cardiac: Yes High Cholesterol Neurological: No Genitourinary: No Gastrointestinal: No Musculoskeletal: Yes (CHRONIC KNEE PAIN) Chronic Back Pain Endocrine: Yes (Obesity) HEENT: No Cancer: No Psychosocial: Yes ADD/ADHD, Depression Integumentary: No Blood Disorders: No Family Medical History Reviewed and Corrections made Heart Disease, CAD Under 55 Years Old Physical Exam Vital Signs Vital Signs - First Documented 05/12/21 16:41 Temp 36.7 Pulse 89 Resp 24 B/P (MAP) 158/97 (117) Pulse Ox 98 O2 Delivery Room Air Capillary Refill : Less Than 3 Seconds Height, Weight, BMI Height: 5'10.00" Weight: 267lbs. oz. 121.859777zh; 40.00 BMI Method:Stated General Appearance: WD/WN, Anxious (mildly), Obese HEENT: PERRL/EOMI, Other (Scabbed over for uncle above the left lip with localized swelling and induration. 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 Norm as Tested, Other (Mildly anxious) Skin: Normal Color, Warm/Dry Progress/Results/Core Measures Results/Orders My Orders Orders - NEAL ELMORE MD Chest 1 View Ap/Pa Only (05/12/21 16:57) Ekg Tracing (05/12/21 16:57) O2 (05/12/21 16:57) Monitor-Rhythm Ecg Trace Only (05/12/21 16:57) Aspirin Chewable Tablet (Baby Aspirin Ch (05/12/21 17:00) Nitroglycerin 0.4 Mg Btl 25's (Nitrostat (05/12/21 17:00) Ed Iv/Invasive Line Start (05/12/21 16:57) Doxycycline Hyclate Tablet (Vibramycin T (05/12/21 17:15) Vital Signs/I&O 05/12/21 16:41 Temp 36.7 Pulse 89 Resp 24 B/P (MAP) 158/97 (117) Pulse Ox 98 O2 Delivery Room Air Blood Pressure Mean: 117 Progress Progress Note : Progress Note Despite patient's family history and other risk factors, he declined treatment or evaluation for chest pain. He acknowledges the risks of doing so. His facial cellulitis was treated with doxycycline. Patient was encouraged to stay to finish out his chest pain work-up but he declined. He left AGAINST MEDICAL ADVICE. Initial ECG Impression Date: May 12, 2021 Initial ECG Impression Time: 16:41 Initial ECG Rate: 102 Initial ECG Rhythm: S.Tach Comment Sinus tachycardia with no ST elevation or depression. Right bundle branch block. No axis deviation. Diagnostic Imaging Diagonstic Imaging: Xray Plain Films/CT/US/NM/MRI: chest Comments NAME: MARY ESCOBEDO [facility] REC#: [id number] PT STATUS: REG ER : 1990 PHYSICIAN: NEAL ELMORE MD ADMIT DATE: 05/12/21/ER FS Signed Date of Exam:05/12/21 CHEST 1 VIEW AP/PA ONLY EXAMINATION: Chest 1 view HISTORY: Chest pain. COMPARISON: 06/27/2019. FINDINGS: The lung volumes are normal. No focal consolidation is seen. No large pleural effusion or pneumothorax is seen. The cardiomediastinal silhouette is normal in size and contour. No acute osseous abnormality is seen. IMPRESSION: 1. No acute pleuroparenchymal process. Dictated by: Dictated on workstation # [id number] Dict: 05/12/211709 Trans: 05/12/211712 [facility] [id number] Interpreted by: STEVEN MERRILL DO Electronically signed by: STEVEN MERRILL DO 05/12/211712 Departure Impression Primary Impression: Facial cellulitis Additional Impression: Chest pain Qualified Codes: R07.9 - Chest pain, unspecified Disposition: AGAINST MEDICAL ADVICE Condition: Against Medical Advice Departure-Patient Inst. Referrals: CORINE JACOBO APRN (PCP/Family) Primary Care Physician Patient Instructions: Chest Pain, Adult ED, Cellulitis (Skin Infection), Adult (DC) Add. Discharge Instructions: Complete your antibiotic as prescribed. Return to care if you have worsening symptoms or develop new symptoms such as fever. The antibiotic prescribed may cause sun sensitivity. Please be careful in the sun while you are on this antibiotic. In regard to your chest pain, you are leaving the emergency department AGAINST MEDICAL ADVICE without completing the work-up. Please seek medical care from your primary care provider or elsewhere as soon as possible. All discharge instructions reviewed with patient and/or family. Voiced understanding. Scripts Doxycycline Hyclate (Doxycycline Hyclate) 100 Mg Tablet 100 MG PO BID, #20 TAB 0 Refills Prov: NEAL ELMORE MD 05/12/21 Copy Copies To 1: JIM MEDINA JOSHUA T MD May 12, 2021 17:18
[2021-05-12] MEDS ORDERED: DOXY100T2 PO (17:26)
== END 2021-05-12 17:45 | disposition left against medical advice (07) ==
LOC: EDUNIT# 16:37 → ER FS 16:39
DX: L03.211 Cellulitis of face (principal); R07.9 Chest pain, unspecified; E66.9 Obesity, unspecified; F17.210 Nicotine dependence, cigarettes, uncomplicated; Z68.41 Body mass index [BMI] 40.0-44.9, adult
CPT/HCPCS: 71045; 93005; 93041

== ENCOUNTER 2021-12-15 08:56 | Outpatient (CLI) | payer MEDICAID ==
[~2021-12-15 08:56] MED LIST changes: +DOXY100T2 PO
== END 2021-12-15 09:10 ==
LOC: SLEEP 08:56
PROVIDERS: ATTEND Nurse Practitioner Family
DX: G47.10 Hypersomnia, unspecified (principal)
CPT/HCPCS: G0399